=== PATIENT | female | born 2000 ===

== ENCOUNTER 2021-07-26 09:16 | Emergency (ER) | payer SELFPAY ==
[2021-07-26 09:24] VITALS: BP 120/81
== END 2021-07-26 17:43 | disposition left against medical advice (07) ==
LOC: ED 09:16
DX: S01.512A Laceration without foreign body of oral cavity, initial encounter (principal); Z53.21 Procedure and treatment not carried out due to patient leaving prior to being seen by health care provider; X58.XXXA Exposure to other specified factors, initial encounter; Y93.89 Activity, other specified; Y92.89 Other specified places as the place of occurrence of the external cause; Y99.8 Other external cause status